=== PATIENT | female | born 1985 | race Caucasian/White ===

== ENCOUNTER → 2017-05-27 | Outpatient (CLI) | payer BC, OTHER | END | disposition home or self-care (01) | LOC: C.PAPS 15:03 | PROVIDERS: ATTEND Obstetrics & Gynecology | DX: Z01.419 Encounter for gynecological examination (general) (routine) without abnormal findings (principal) ==

== ENCOUNTER 2022-02-07 07:30 | Inpatient (IN) ==
--- NOTE | 2022-01-29 09:44 | Anesthesiology Consultation ---
Date of Service January 29, 2022 Assessment & Plan (1) Encounter for pre-operative examination: Chart Review Chart Review: Acceptable Risk for Surgery and Patient NOT seen in Pre Admission Testing Consults Requested none History Surgery Operation Date: 02/07/22 07:30 Proposed Procedures p Section in LD (Delivery of Baby through Abdominal Incision) with - Cheng Mccracken MD s Post Tubal Ligation Labor & Deliv - Cheng Mccracken MD Height/Weight Height: 5 ft 10.5 in Weight: 108.862 kg Allergies Allergy/AdvReac Type Severity Reaction Status Date / Time lisinopril Allergy Severe angioedema Verified 01/28/22 13:01 levofloxacin Allergy Mild unk Verified 01/28/22 13:01 CARTIA Allergy Severe angioedema Uncoded 01/28/22 13:01 HCTZ Allergy Severe angioedema Uncoded 01/28/22 13:01 TOPROL Allergy Intermediate feet Uncoded 01/28/22 13:01 swelling bandaid AdvReac sensitivity Uncoded 01/28/22 13:01 to adhesive Medications Home Medications Medication Instructions Recorded Confirmed Last Taken prenat.vits,ed,chf-[id number]-pmtjh 1 tab PO HS 07/05/21 01/28/22 01/15/22 21:00 aspirin 81 mg tablet,delayed 81 mg PO HS 09/10/21 01/28/22 01/15/22 21:00 release docusate sodium 100 mg tablet 100 mg PO QAM 01/28/22 01/28/22 Unknown fexofenadine 180 mg tablet 180 mg PO HS 01/28/22 01/28/22 Unknown fluticasone propionate 50 2 spray intranasal HS 01/28/22 01/28/22 Unknown mcg/actuation nasal spray,suspension (Flonase Allergy Relief) Past Medical History Medical History Allergic rhinitis Anxiety Asthma, cough variant "in remission" Asthmatic bronchitis 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 Esophageal reflux hx Migraines last one, "about a year ago" Mitral regurgitation cardio said it was "benign" Reactive hypertension "white coat syndrome, as soon as I enter the hospital my blood pressure spikes"; saw KEITH Andersen, for this ~2014, holter monitor for 24 hours; no longer sees cardio Past Family History Family History Father Brain tumor (benign) Hyperlipidemia Hypertension Skin cancer Mother Asthma Hypertension Prediabetes Colonic polyp Environmental allergies Brother Asthma Environmental allergies Grandfather (Maternal) FH: kidney cancer Aunt Breast cancer maternal Colorectal cancer maternal Grandfather (Paternal) Diabetes Skin cancer Grandmother (Maternal) Alzheimer disease Grandmother (Paternal) TIA (transient ischemic attack) Heart disease Unknown Autism Other No family history of adverse response to anesthesia No family history of bleeding disorder Past Surgical History Surgical History History of ear surgery left PE tube removal-1995 History of esophagogastroduodenoscopy (EGD) 2018 History of placement of ear tubes 1988-bilateral left-1992 History of wisdom tooth extraction 2000 S/P T&A (status post tonsillectomy and adenoidectomy) Status post biopsy of skin mole on my back Social History Smoking Status: Never smoker Do You Dip or Chew Tobacco: No Hx Alcohol Use: Yes ("when I'm not ") alcohol intake frequency: holidays/special occasions only Hx Substance Use: No substance use type: does not use
[~2022-02-07 07:30] MED LIST: CITRIC ACID/SODIUM CITRATE 15 ML UDC PO SCH
--- NOTE | 2022-02-07 07:33 | History & Physical Report ---
Date of Service February 07, 2022 Assessment & Plan (1) Multigravida of advanced maternal age: (2) Dichorionic diamniotic twin : (3) Rh negative status during : (4) Chronic hypertension affecting : (5) BMI 30.0-30.9,adult: Sebastián Monroe is a 36yo at 38w2d GA with Jeremie IUP. Presents for Primary C- section with BTL for twin and prior traumatic delivery. 1. Reactive NST x2 2. Delivery via pLTCS with BTL. Per above 3. Vitals: WNL 4: PPH risk: High - Type and cross History of Present Illness Primary Care Provider: Glen Echeverria MD Mabel is a 36yo at 38w2d GA with Jeremie IUP. Presents for Primary C- section with BTL for twin and prior traumatic delivery. and Delivery Plans FYI-Prior Traumatic Delivery (seen Therapist) --desires planned c/s and tubal EBL 700, txa with last delivery All Twins *Baby ASA daily start 12-28wks until delivery *Anatomy scan @20wks *Serial growth US/S starting @24wks *Wkly NST's @32wks, twice wkly @36wks(nml growth) *Twice wkly NST's @32wks, ICSI or abnml growth *MD visits Q2wks @24wks & Qwk @32wks Twin Del Plan *DI/DI Deliver @38wks C/S with Nawaf on 02/07/22, Raheel to assist COVID test on 02/05/22 CHTN - no meds *Baby ASA daily start 12-28 wks, continue until delivery *wkly NST's @32wks and twice wkly @36 wks *Serial Growth US @ 24 (doppler only if abnml) *Baseline 24hr urine (additioinal PRN) - wnl *weekly RYAN's @ 32wk(if on meds) *Deliver [id number] Pfizer COVID vaccinations *09/08/20, 09/29/20 & 04/27/21 AMA *Weekly NSTs at 36wks Rh neg -rhogam candidate OB Labs: Blood Type AB Negative 07/16/21 Antibody Screen NEGATIVE 11/29/21 Hemoglobin 12.6 g/dl (12.0-16.0) 01/08/22 Hematocrit 39.8 % (34.1-44.9) 01/08/22 Mean Corpuscular Volume 85.4 fL (80.0-100.0) 01/08/22 Platelet Count 227 K/uL (130-400) 01/08/22 Rubella IgG Antibody Immune (Immune) 07/16/21 Rapid Plasma Reagin Nonreactive (Nonreactive) 07/16/21 Hepatitis B Surface Antigen Neg (Neg) 07/16/21 Hepatitis C Antibody Neg (Neg) 07/16/21 HIV (1&2) Ab and P24 Ag, 4th Gener Neg (Neg) 07/16/21 Glucose 1 Hour 50 gm Load 106 mg/dl (70-130) 11/29/21 OB Optional Labs: Chlamydia trachomatis RNA NOT DETECTED (NOT DETECTED) 07/15/21 Neisseria gonorrhoeae RNA NOT DETECTED (NOT DETECTED) 07/15/21 Labs Reviewed: Reports prior horizon carrier screen - ROR signed gbs neg low risk panorama x 2 Allergies Allergy/AdvReac Type Severity Reaction Status Date / Time levofloxacin Allergy Severe Unknown Verified 02/06/22 09:24 lisinopril Allergy Severe angioedema Verified 02/06/22 09:24 CARTIA Allergy Severe angioedema Uncoded 01/28/22 13:01 HCTZ Allergy Severe angioedema Uncoded 01/28/22 13:01 TOPROL Allergy Intermediate feet Uncoded 01/28/22 13:01 swelling bandaid AdvReac sensitivity Uncoded 01/28/22 13:01 to adhesive Home Medications Medication Instructions Recorded Confirmed Type prenat.vits,ed,atp-ibrq-rrvpp 1 tab PO HS 07/05/21 02/07/22 History aspirin 81 mg tablet,delayed 81 mg PO HS 09/10/21 02/07/22 History release docusate sodium 100 mg tablet 100 mg PO QAM 01/28/22 02/07/22 History fexofenadine 180 mg tablet 180 mg PO HS 01/28/22 02/07/22 History fluticasone propionate 50 2 spray intranasal HS 01/28/22 02/07/22 History mcg/actuation nasal spray,suspension (Flonase Allergy Relief) Patient History Medical History Allergic rhinitis Anxiety Asthma, cough variant "in remission" Asthmatic bronchitis 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 Esophageal reflux hx Migraines last one, "about a year ago" Mitral regurgitation cardio said it was "benign" Reactive hypertension "white coat syndrome, as soon as I enter the hospital my blood pressure spikes"; saw KEITH Andersen, for this ~2014, holter monitor for 24 hours; no longer sees cardio Surgical History History of ear surgery left PE tube removal-1995 History of esophagogastroduodenoscopy (EGD) 2018 History of placement of ear tubes 1988-bilateral left-1992 History of wisdom tooth extraction 2000 S/P T&A (status post tonsillectomy and adenoidectomy) Status post biopsy of skin mole on my back Family History Father Brain tumor (benign) Hyperlipidemia Hypertension Skin cancer Mother Asthma Hypertension Prediabetes Colonic polyp Environmental allergies Brother Asthma Environmental allergies Grandfather (Maternal) FH: kidney cancer Aunt Breast cancer maternal Colorectal cancer maternal Grandfather (Paternal) Diabetes Skin cancer Grandmother (Maternal) Alzheimer disease Grandmother (Paternal) TIA (transient ischemic attack) Heart disease Unknown Autism Other No family history of adverse response to anesthesia No family history of bleeding disorder Social History Smoking Status: Never smoker Second Hand Exposure: No; Do You Dip or Chew Tobacco: No; Tobacco Cessation Education Requested by Patient: No Hx Alcohol Use: Yes ("when I'm not ") Hx Substance Use: No Preferred Language: Pashto Communication Ability: Effective Visual Impairment: No Limitations Hearing Ability: Normal Sales Engagement Manager Required: No Beliefs That Will Affect Care: None marital status: marital status details: Elmer Aguilera [phone]) [phone] Current Living Situation: Spouse and Family Current Living Situation Comment: FOB and 1 child. no pets. current occupational status: unemployed current occupation: Homemaker Other Information That Helps Us Care for You: No Feels Safe at Home: Yes Safety Concerns: Feels Safe At This Time Seatbelt Use: always Sunscreen Use: Yes Gender Identity: Female Assistive Devices: Contacts Physical Exam Constitutional: WD/WN, vitals as above Respiratory: normal respiratory effort; no respiratory distress, no labored breathing and no retractions Cardiovascular: Rate/Rhythm: regular rate and regular rhythm Gastrointestinal (Abdomen): Percussion/Palpation: abdomen soft; abdomen nontender, no guarding and abdomen not rigid Psychiatric: A+Ox3, euthymic affect Genitourinary: OB Exam Monitor Tracing: + external FHT monitor used, + external uterine monitor used, + category I and + normal FHT variability Coding Level of Care Code None Diagnoses Multigravida of advanced maternal age O09.529 Dichorionic diamniotic twin O30.049 Rh negative status during O26.899; Z67.91 Chronic hypertension affecting O10.919 BMI 30.0-30.9,adult Z68.30
[2022-02-07] MEDS ORDERED: LACTATED RINGER'S 1,000 ML IV SCH ×2 (08:00→13:30)
[2022-02-07] MEDS ORDERED: fentaNYL citrate 100 MCG/2 ML VIAL ONE (08:13)
[2022-02-07] MEDS ORDERED: MoRPHine SULFATE PF 1 MG/ML 10 ML AMP/VIAL ONE (08:13)
[2022-02-07 08:30] LABS: Basophils # (auto) 0.05 K/uL (0-0.2); Basophils % (auto) 0.5 %; Eosinophils # (auto) 0.05 K/uL (0-0.50); Eosinophils % (auto) 0.5 %; Hematocrit (blood only) 37.6 % (34.1-44.9); Hemoglobin 12.1 g/dl (12.0-16.0); Immature Granulocytes % (auto) 1.1 %; Lymphocytes # (auto) 1.57 K/uL (1.2-3.4); Lymphocytes % (auto) 16.6 %; Mean Corpuscular Hemoglobin 27.1 pg (25.0-34.0); Mean Corpuscular Hgb Conc 32.2 g/dL (32.0-36.0); Mean Corpuscular Volume 84.1 fL (80.0-100.0); Mean Platelet Volume 12.1 fL (9.4-12.3); Monocytes # (auto) 0.64 K/uL (0.24-0.82); Monocytes % (auto) 6.8 %; Neutrophils # (auto) 7.02 K/uL (1.4-6.5); Neutrophils % (auto) 74.5 %; Platelet Count 179 K/uL (130-400); RDW Coefficient of Variation 14.8 % (11.5-14.5); RDW Standard Deviation 44.3 fL (36.4-46.3); Red Blood Count 4.47 M/uL (3.93-5.22); White Blood Count 9.43 K/ul (4.8-10.8)
[2022-02-07 09:42] LABS: Appearance Urine Clear (Clear); Bacteria Urine Automated Negative (Negative); Bilirubin Urine Negative (Negative); Blood Urine Negative (Negative); Color Urine Yellow; Glucose Urine UA Negative (Negative); Ketones Urine Negative (Negative); Leukocyte Esterase Urine Negative (Negative); Nitrite Urine Negative (Negative); Protein Urine 2+ (Negative); RBC Urine Automated 0-4 /hpf (0-4); Specific Gravity Urine 1.013 (1.000-1.030); Urobilinogen Urine Negative (Negative)
[2022-02-07] MEDS ORDERED: ONDANSETRON INJ 2 MG/ML 2 ML VIAL IV PRN (12:30)
[2022-02-07] MEDS ORDERED: ACETAMINOPHEN 1000 MG/100 ML IV IV PRN (12:30)
[2022-02-07] MEDS ORDERED: HYDROmorphone INJ 0.5 MG/0.5 ML SYR IV PRN (12:30)
[2022-02-07] MEDS ORDERED: PROMETHAZINE HCL 25 MG in SODIUM CHLORIDE 0.9% 50 ML IV PRN (12:30)
[2022-02-07] MEDS ORDERED: NO NARCOTICS OR SEDATIVES SCH (12:30)
[2022-02-07] MEDS ORDERED: MoRPHine SULFATE PF 1 MG/ML 10 ML AMP/VIAL INT SPINAL ONE (12:30)
[2022-02-07] MEDS ORDERED: DC INTRASPINAL MORPHINE SCH (12:30)
[2022-02-07] MEDS ORDERED: LACTATED RINGER'S 500 ML IV PRN (12:30)
[2022-02-07] MEDS ORDERED: NALOXONE HCL 1 MG in SODIUM CHLORIDE 0.9% 1000ML 1,000 ML IV PRN (12:30)
[2022-02-07] MEDS ORDERED: SODIUM CHLORIDE 0.9% 1000ML 1,000 ML IV SCH (12:30)
[2022-02-07] MEDS ORDERED: ePHEDrine sulfate 50 MG/ML AMP IV PRN (12:30)
[2022-02-07] MEDS ORDERED: diphenhydrAMINE 50 MG/ML VIAL IV PRN (12:30)
[2022-02-07] MEDS ORDERED: NALOXONE HCL 0.08 MG in SYRINGE 1.8 ML IV PRN (12:30)
[2022-02-07] MEDS ORDERED: NALBUPHINE HCL INJ 10 MG/ML AMP IV PRN (12:30)
[2022-02-07] MEDS ORDERED: NALOXONE HCL 0.4 MG/1 ML VIAL/CARP IV PRN (12:30)
--- NOTE | 2022-02-07 13:26 | Post Operative Brief Note ---
PG Immediate Post Op with CF Date of Surgery February 07, 2022 Pre & Post Diagnosis Operation Date: 02/07/22 09:45 Pre-Op Diagnosis: Twin Post-Op Diagnosis: Twin I identified the patient and participated in the time-out.: Yes Procedure Operation Date: 02/07/22 09:45 Actual Procedures p Section in LD (Delivery of Baby through Abdominal Incision) live male child born at 1233 and live female child born at 1234 - Cheng Mccracken MD s Post Tubal Ligation Labor & Deliv - Cheng Mccracken MD Surgeon Cheng Mccracken MD Lead Case Manager None Estimated Blood Loss 700 Findings Consistent with Post-Op Diagnosis Specimens Specimen Description: 1) placenta A-exam 2) placenta B-exam 3) cord blood A 4) cord blood B 5) right fallopian tube 6) left fallopian tube Drains Osborn Catheter (intact and draining, monitored by anesthesia throughout intraoperative) OB Procedure charges OB Charges [phone] [id number] Add on Tubal for C/S
[2022-02-07] MEDS ORDERED: DIPHTHERIA/TETANUS/PERTUSSIS 0.5 ML SYR/VIAL IM ONE (13:27)
[2022-02-07] MEDS ORDERED: MAGNESIUM HYDROXIDE SUSP 30 ML UDC PO PRN (13:27)
[2022-02-07] MEDS ORDERED: HYDROCORTISONE ACETATE 25 MG SUPP PR PRN (13:27)
[2022-02-07] MEDS ORDERED: BENZOCAINE 20% AER SPR 82.5 GM CAN EXT PRN (13:27)
[2022-02-07] MEDS ORDERED: SENNA 8.6 MG TAB PO PRN (13:27)
--- NOTE | 2022-02-07 15:08 | Anesthesiology Progress Note ---
Date of Service February 07, 2022 Anesthesia Post Procedure Vital Signs Vital Signs: Temp Pulse Resp BP Pulse Ox 02/07/22 14:36 18 02/07/22 14:35 18 02/07/22 14:25 18 02/07/22 14:15 18 02/07/22 14:05 18 02/07/22 13:55 18 137/83 02/07/22 13:45 18 02/07/22 13:35 98.8 F 18 02/07/22 15:06 78 99 02/07/22 15:01 78 98 02/07/22 14:56 67 98 02/07/22 14:51 70 99 02/07/22 14:46 67 98 02/07/22 14:41 66 99 02/07/22 14:42 60 161/77 H 02/07/22 14:36 71 98 02/07/22 14:32 67 166/74 H 02/07/22 14:31 70 97 02/07/22 14:26 78 99 02/07/22 14:25 68 160/64 H 02/07/22 14:23 101 H 180/78 H 02/07/22 14:21 81 99 02/07/22 14:16 73 100 02/07/22 14:11 70 99 02/07/22 14:12 62 136/96 02/07/22 14:06 67 99 02/07/22 14:01 77 99 02/07/22 14:02 76 133/79 02/07/22 13:56 74 99 02/07/22 13:54 85 137/83 02/07/22 13:51 80 99 02/07/22 13:46 81 98 02/07/22 13:43 104 H 141/91 H 02/07/22 13:41 93 H 100 02/07/22 13:40 83 92 02/07/22 13:36 91 H 98 02/07/22 13:31 95 H 94 02/07/22 13:32 90 134/61 02/07/22 11:03 99.0 F 81 18 150/92 H 02/07/22 07:54 18 02/07/22 07:54 98.4 F 18 02/07/22 07:55 100 H 136/90 Transfer of Care Handoff Completed per policy Notes Mental Status: alert / awake / arousable and participated in evaluation Patient Amnestic to Procedure: No Nausea / Vomiting: adequately controlled Pain: adequately controlled Airway Patency, RR, SpO2: stable & adequate BP & HR: stable & adequate Hydration State: stable & adequate Neuraxial Anesthesia: was administered and sensory block is resolving Anesthetic Complications: no major complications apparent and Pt Satisfied with anesthetic care
[2022-02-07] MEDS: OXYTOCIN 20 UNITS in LACTATED RINGER'S 1,000 ML IV SCH ×2 (15:46→23:51)
[2022-02-07] MEDS: KETOROLAC 30 MG/ML VIAL IV PRN ×2 (17:01→23:50)
[2022-02-07] MEDS: SIMETHICONE 80 MG CHEW PO SCH ×2 (17:02→21:48)
--- NOTE | 2022-02-07 17:46 | Operative Report (OR) ---
DATE OF SERVICE: 02/07/2022 PROCEDURE: Primary section for twin . SURGEON: Cheng Mccracken MD. CARD PUNCHING MACHINE OPERATOR: Judy Pickering MD. PREOPERATIVE DIAGNOSES: 1. Twin intrauterine at 38 weeks 0 days gestational age. 2. Chronic hypertension. 3. Advanced maternal age. 4. Desired permanent sterilization. 5. Bilateral salpingectomy. POSTOPERATIVE DIAGNOSES: 1. Twin intrauterine at 38 weeks 0 days gestational age. 2. Chronic hypertension. 3. Advanced maternal age. 4. Desired permanent sterilization. 5. Bilateral salpingectomy. 6. Status post procedure. ESTIMATED BLOOD LOSS: 700 mL. DRAINS: Osborn catheter. FLUIDS: Continuous lactated Ringer. URINE OUTPUT: Per Osborn catheter. COMPLICATIONS: None. FINDINGS: Twin intrauterine with viable twins noted. Twins were initially noted to have a spontaneous cry and be vigorous, but were taken over to the waiting nursery staff for further evalua tion and care after delivery. Cord blood was obtained. DESCRIPTION OF PROCEDURE: The patient was taken to the operating room after consents were assured. Upon presentation, she was properly identified. Spinal anesthesia was obtained without difficulty. The patient was then prepped and draped in normal sterile fashion. Preprocedural timeout was perform ed. A Pfannenstiel incision was then made with a knife. This was carried down to underlying fascia with the Bovie. The fascia was nicked at the midline with a knife and was extended laterally with lakshmi suarez and Tubbs scissors. The superior aspect of the fascia was then grasped with Kochers x2, elevate d off the underlying rectus muscles using blunt dissection. Inferior aspect of the fascia was graspe d with Kochers x2, elevated off the underlying rectus muscles using blunt dissection. The midline wa s then entered bluntly and placed on stretch to provide adequate room for delivery. The bladder blad e was inserted. Bladder flap was created. A low transverse uterine incision was then made with a kn ganesh. The intrauterine cavity was then entered bluntly and placed on stretch to provide adequate room for delivery. The first was noted to be in cephalic position. Head of the was deli floyd without difficulty, body and shoulders quickly followed. was noted to be vigorous init ially upon delivery. Cord was double clamped and cut. taken to the waiting nursery staff fo r evaluation. The twin B was also noted to be in cephalic position, brought down to the hysterotomy and membranes were ruptured for clear fluid and the head of the was delivered without difficu lty, and the body and shoulders quickly followed. The cord was also noted to be vigorous upon delive ry. Cord was double clamped and cut. taken to the waiting nursery staff for evaluation. Co rd blood was then obtained from both placentas. The placentas were then delivered with fundal massag e and gentle cord traction. Uterus was exteriorized. Several passes were made to remove any remaini ng membranes with a wet lap. Uterus was then wrapped in wet lap and the hysterotomy was reapproximat ed with 0 Vicryl continuous running locked stitch. Second imbricating layer was performed. There we re several areas of bleeding, and hemostasis was achieved with a [id number] stitch. The bilater al fallopian tubes were identified and were serially cauterized and dissected using the LigaSure down to the level of the uterine cornua. At which point they were transected and sent to pathology for e valuation. The posterior cul-de-sac was then cleaned of clots and debris. The uterus was returned t o maternal abdomen. The right and left pericolic gutters were cleaned of clots and debris. The pedi cles from the bilateral salpingectomy were evaluated and noted to be hemostatic. The space of Retziu s was noted to be hemostatic. The hysterotomy was reinspected and also noted to be hemostatic. The decision was made to close the case. The fascial muscle and subcutaneous layers were inspected to be hemostatic. Fascia was reapproximated with 0 Vicryl continuous running stitch. The subcutaneous la yers were reapproximated in two layers using 2-0 plain. The skin was reapproximated with 3-0 Vicryl on a Brandon needle. Needle, sponge, and instrument counts were correct at the completion of the case with mother and both neonates were noted to be in stable condition after delivery in the immediate po st-delivery period. Job ID: [id number]
[2022-02-07] MEDS: DOCUSATE SODIUM 100 MG CAP PO SCH (21:48)
[2022-02-07] MEDS ORDERED: LACTATED RINGER'S 1,000 ML IV ONE (21:52)
[2022-02-08] MEDS ORDERED: CITRIC ACID/SODIUM CITRATE 15 ML UDC PO SCH (06:00)
[2022-02-08] MEDS ORDERED: diphenhydrAMINE Capsule 25 MG CAP PO PRN (06:31)
[2022-02-08] MEDS ORDERED: ONDANSETRON INJ 2 MG/ML 2 ML VIAL IV PRN (06:31)
[2022-02-08] MEDS ORDERED: diphenhydrAMINE 50 MG/ML VIAL IV PRN (06:31)
[2022-02-08] MEDS ORDERED: KETOROLAC 30 MG/ML VIAL IV PRN (06:31)
[2022-02-08] MEDS ORDERED: PROMETHAZINE HCL 25 MG in SODIUM CHLORIDE 0.9% 50 ML IV PRN (06:31)
[2022-02-08] MEDS: oxyCODONE/ACETAMINOPHEN 5mg/325mg TAB PO PRN ×5 (06:49→23:17)
[2022-02-08] MEDS: IBUPROFEN 600 MG TAB PO PRN ×5 (06:49→23:17)
[2022-02-08 07:11] LABS: Basophils # (auto) 0.05 K/uL (0-0.2); Basophils % (auto) 0.4 %; Eosinophils # (auto) 0.07 K/uL (0-0.50); Eosinophils % (auto) 0.5 %; Hematocrit (blood only) 26.2 % (34.1-44.9); Hemoglobin 8.5 g/dl (12.0-16.0); Immature Granulocytes # (auto) 0.09 K/uL (0.00-0.02); Immature Granulocytes % (auto) 0.7 %; Lymphocytes % (auto) 11.2 %; Mean Corpuscular Hemoglobin 27.5 pg (25.0-34.0); Mean Corpuscular Hgb Conc 32.4 g/dL (32.0-36.0); Mean Corpuscular Volume 84.8 fL (80.0-100.0); Mean Platelet Volume 11.8 fL (9.4-12.3); Monocytes # (auto) 0.72 K/uL (0.24-0.82); Monocytes % (auto) 5.4 %; Neutrophils # (auto) 10.99 K/uL (1.4-6.5); Neutrophils % (auto) 81.8 %; Platelet Count 133 K/uL (130-400); RDW Coefficient of Variation 14.6 % (11.5-14.5); RDW Standard Deviation 44.1 fL (36.4-46.3); Red Blood Count 3.09 M/uL (3.93-5.22); White Blood Count 13.42 K/ul (4.8-10.8)
[2022-02-08] MEDS: SIMETHICONE 80 MG CHEW PO SCH ×4 (07:38→19:24)
[2022-02-08] MEDS: FERROUS SULFATE 325 MG TAB PO SCH (07:38)
[2022-02-08] MEDS: PRENATAL VITAMIN 1 TAB PO SCH (07:38)
[2022-02-08] MEDS: DOCUSATE SODIUM 100 MG CAP PO SCH ×2 (07:39→19:24)
--- NOTE | 2022-02-08 07:48 | Obstetrical Progress Note ---
Date of Service <Angelica Orellana MD - Last Filed: 02/08/22 08:21> February 08, 2022 Assessment & Plan <Angelica Orellana MD - Last Filed: 02/08/22 08:21> (1) Encounter for care and examination after delivery: Mabel is a 36yo at 38w2d GA with Jeremie IUP. POD1 s/p c/s for twins and prior traumatic delivery. GBS- RI AB- Advance diet as tolerated Encourage ambulation <Cheng Mccracken MD - Last Filed: 02/08/22 08:33> (1) Encounter for care and examination after delivery: Subjective <nAgelica Orellana MD - Last Filed: 02/08/22 08:21> Ambulation: limited ambulation Voiding: no voiding problems Passing Gas:: Yes Diet Tolerance:: clear liquids Lochia:: Small Physical Exam <Angelica Orellana MD - Last Filed: 02/08/22 08:21> Constitutional WD/WN, vitals as above Respiratory no increased work of breathing Cardiovascular no calf tenderness clinically well perfused Gastrointestinal (Abdomen) c/d/i, uterine fundus firm at 1 cm below the level of the umbilicus, NT, soft Psychiatric A+Ox3, euthymic affect Results & Data ([facility]) <Angelica Orellana MD - Last Filed: 02/08/22 08:21> Vital Signs (Past 12 Hours) Vital Signs Temp Pulse Resp BP Pulse Ox O2 Del Method 02/08/22 06:00 18 98 02/08/22 05:00 18 95 02/08/22 04:00 18 98 02/08/22 03:45 36.6 C 73 18 131/81 98 Room Air 02/08/22 03:00 18 97 02/08/22 02:00 18 98 02/08/22 01:00 18 98 02/08/22 00:00 18 97 02/08/22 00:00 37.2 C 67 18 141/81 H 97 Room Air 02/07/22 22:00 18 97 02/07/22 21:00 18 98 02/07/22 20:00 16 97 02/07/22 20:30 37.3 C 75 18 148/92 H 97 Room Air <Cheng Mccracken MD - Last Filed: 02/08/22 08:33> Co-Signing Physician Notes patient seen with resident agree of the above findings and plan. Patient bolused 1 L of LR last night and urine output has improved. Hemoglobin 8.5 this a.m. and will continue to monitor for anemia symptoms. Resident Activity Tracking <Angelica Orellana MD - Last Filed: 02/08/22 08:21> Resident Involvement: Resident Care Provided Care Provided: Adult Hospital Medicine
[2022-02-08] MEDS ORDERED: bisacodyL 5 MG TABEC PO SCH (20:00)
[2022-02-09] MEDS: IBUPROFEN 600 MG TAB PO PRN ×5 (04:30→22:40)
[2022-02-09] MEDS: oxyCODONE/ACETAMINOPHEN 5mg/325mg TAB PO PRN ×5 (04:30→22:40)
[2022-02-09 06:46] LABS: Hematocrit (blood only) 25.1 % (34.1-44.9)
--- NOTE | 2022-02-09 08:04 | Obstetrical Progress Note ---
Date of Service February 09, 2022 Assessment & Plan (1) Encounter for care and examination after delivery: (2) Dichorionic diamniotic twin : Plan Doing well. Routine postpp/postop care. Has had a couple of elevated pressures, but no s/s of pet and likely from her anxiety related to being in the hospital. Plan to stay today and likely d/c tomorrow. Day #:: 2 Subjective Ambulation: ambulating normally Voiding: no voiding problems Passing Gas:: Yes Diet Tolerance:: regular diet Lochia:: Small Feeding Type:: breast feeding Babies are cluster feeding. She notes some very slight nausea when getting out of bed. Other brian doing well. h/h slightly lower today but likely just settling out. Do not think she needs transfusion at this time. Physical Exam Constitutional WD/WN, vitals as above Respiratory normal respiratory effort, lungs clear to auscultation Cardiovascular RRR, no murmur, no edema Extremities: + edema (+1); no calf tenderness Gastrointestinal (Abdomen) soft, nt, nd, +bs ff/nt at u incision c/d/i Psychiatric A+Ox3, euthymic affect Results & Data ([facility]) Vital Signs (Past 12 Hours) Vital Signs Temp Pulse Resp BP Pulse Ox O2 Del Method 02/09/22 01:21 36.8 C 67 18 151/89 H 97 Room Air
[2022-02-09] MEDS: FERROUS SULFATE 325 MG TAB PO SCH (09:05)
[2022-02-09] MEDS: DOCUSATE SODIUM 100 MG CAP PO SCH ×2 (09:05→21:04)
[2022-02-09] MEDS: PRENATAL VITAMIN 1 TAB PO SCH (09:05)
[2022-02-09] MEDS: SIMETHICONE 80 MG CHEW PO SCH ×4 (09:06→21:04)
[2022-02-09] MEDS ORDERED: bisacodyL 10 MG SUPP PR PRN (13:27)
[2022-02-10] MEDS: IBUPROFEN 600 MG TAB PO PRN ×2 (04:40→09:09)
[2022-02-10] MEDS: oxyCODONE/ACETAMINOPHEN 5mg/325mg TAB PO PRN ×2 (04:40→09:12)
--- NOTE | 2022-02-10 08:16 | Obstetrical Progress Note ---
Date of Service February 10, 2022 Assessment & Plan (1) Encounter for care and examination after delivery: (2) Dichorionic diamniotic twin : Plan Doing well. Routine postpp/postop care. Has had a couple of elevated pressures, but no s/s of pet and likely from her anxiety related to being in the hospital. Plan to discharge today if patient's BP remain stable and will have patient f/u with her PCP for her BP. She states that she used to take medications for HTN in the past but was 10 years ago. Admission and Anticipated Discharge Date Admission Date: February 07, 2022 Supervising Physician Co-Signing Physician Notes Resident Physician Supervision Note: I interviewed and examined the patient. Discussed with Dr. Varela and agree with findings and plan as documented in the note. Any exceptions or clarifications are listed here: Doing very well. Borderline elevated blood pressures at times no s/s of pet. Plan d/c home. Instructions reviewed. f/u in ob clinic in one week and have asked her to make appt with pcp. s/s of pet reviewed. Call with any concerns. Documented By: Judy Pickering MD, FACOG Subjective Mabel is a 36 y/o female who is POD #3 following delivery at 38 weeks of twins. She reports feeling well overall this morning. Denies any abdominal cramping & 5/10 pain well managed on analgesics. Voiding without issues. Tolerating meals overnight and able to ambulate some. Has been able to pass gas but no bowel movement. Has some persistent lochia with some improvement this morning. Currently breast feeding. Ambulation: ambulating normally Voiding: no voiding problems Passing Gas: Yes Diet Tolerance: regular diet Lochia: Small Feeding Type: breast feeding Babies are cluster feeding. h/h lower but likely just settling out. Hgb was 8.0 yesterday. Do not think she needs transfusion at this time. Review of Systems Review of Systems: Denies fever, chills, sweats Denies shortness of breath, difficulty breathing, chest pain, palpitations, chest pressure. Denies breast pain. Denies dysuria. Denies headache or changes in vision. Physical Exam Physical Exam: General: Alert, oriented. No acute distress. Cardiac: Regular rate and rhythm, no murmurs/rubs/gallops. Respiratory: Clear to auscultation bilaterally a/p, no wheezes/rales/rhonchi. No increased work of breathing. Symmetrical chest rise. No respiratory distress. Abdomen: Soft, nontender, nondistended. Bowel sounds present. Uterus: Uterine fundus firm, palpable 2 cm below umbilicus. Surgical scar clean and healing well. Lower Extremities: No lower extremity edema or swelling. No deep calf pain. Nancy's negative bilaterally. Results & Data ([facility]) Vital Signs (Past 12 Hours) Vital Signs Temp Pulse Resp BP Pulse Ox O2 Del Method 02/10/22 07:00 36.6 C 86 16 151/90 H 99 Room Air 02/10/22 04:20 36.9 C 89 18 150/93 H 98 Room Air 02/10/22 01:12 36.6 C 76 18 150/93 H Room Air Resident Activity Tracking Resident Involvement: Resident Care Provided Care Provided: OB Delivery
[2022-02-10] MEDS: PRENATAL VITAMIN 1 TAB PO SCH (09:09)
[2022-02-10] MEDS: FERROUS SULFATE 325 MG TAB PO SCH (09:09)
[2022-02-10] MEDS: SIMETHICONE 80 MG CHEW PO SCH (09:13)
[2022-02-10] MEDS: DOCUSATE SODIUM 100 MG CAP PO SCH (09:13)
--- NOTE | 2022-02-12 12:04 | Discharge Summary (DS) ---
DATE OF ADMISSION: 02/07/2022. DATE OF DISCHARGE: 02/10/2022. HOSPITAL COURSE: The patient was admitted for a scheduled primary section for twin pregnanc y. Procedure was performed without complication. The patient remained in-house for 3 days postpartu m and was discharged home in stable condition. No complicating factors arose during her c ourse and the patient was discharged home in stable condition with both written and verbal discharge instructions. Job ID: [id number]
== END 2022-02-10 12:15 | disposition home or self-care (01) | DRG 784 ==
LOC: EDSTATUS 07:30 → 4S1 07:42 → 4E2 16:01
PROC: M.PPTLD (2022-02-07 09:45)